=== PATIENT | female | born 1945 | race Two or more races ===

== ENCOUNTER → 2020-06-11 | Emergency (ER) | payer OTHER ==
[~2020-06-11] VITALS: Ht 134.6 cm; Wt 40.4 kg
[~2020-06-11] MED LIST: PENTAZOCINE-NA1 EACH; PROBIOTIC1 EACH
== END | disposition home or self-care (01) ==
LOC: ER 11:53
DX: R10.32 Left lower quadrant pain (principal)

== ENCOUNTER 2020-07-27 15:10 | Emergency (ER) | payer OTHER ==
[~2020-07-27] VITALS: Ht 144.8 cm; Wt 44.0 kg
[2020-07-27] MEDS ORDERED: PEPCID20 MG PO (19:18)
[2020-07-27] MEDS ORDERED: LEVSIN0.125 MG PO (19:18)
[2020-07-27] MEDS ORDERED: ACETAMINOPHEN650 M2 PO (19:18)
[2020-07-27] MEDS ORDERED: INTESTINEX680 M1 PO (19:18)
== END 2020-07-27 19:27 | disposition home or self-care (01) ==
LOC: ER 15:10
DX: K57.30 Diverticulosis of large intestine without perforation or abscess without bleeding (principal); R10.11 Right upper quadrant pain

== ENCOUNTER 2022-02-07 14:28 | Emergency (ER) | payer OTHER ==
[~2022-02-07] VITALS: Ht 149.9 cm; Wt 43.1 kg
[~2022-02-07 14:28] MED LIST changes: +ACETAMINOPHEN650 M2 PO; +INTESTINEX680 M1 PO; +LEVSIN0.125 MG PO; +PEPCID20 MG PO
[2022-02-07] MEDS ORDERED: PEPCID AC20 MG PO (19:53)
== END 2022-02-07 20:14 | disposition home or self-care (01) ==
LOC: ER 14:28
DX: R10.9 Unspecified abdominal pain (principal); K57.30 Diverticulosis of large intestine without perforation or abscess without bleeding; Z88.0 Allergy status to penicillin

== ENCOUNTER 2022-02-14 16:44 | Outpatient (CLI) | payer OTHER ==
[~2022-02-14 16:44] MED LIST changes: +PEPCID AC20 MG PO
== END 2022-02-14 16:47 | disposition home or self-care (01) ==
LOC: SONOGRAMA 16:44
PROVIDERS: ATTEND Pathology Anatomic Pathology & Clinical Pathology
DX: E04.2 Nontoxic multinodular goiter (principal)